=== PATIENT | female | born 1955 | race Hispanic/Latino ===

== ENCOUNTER → 2018-10-31 | Outpatient (CLI) | payer BC ==
[~2018-10-31] MED LIST: CANAGLIFLOZIN PO; CRESTOR10 MG PO; GLIMEPIRIDE4 MG PO; INVOKANA PO; LISINOPRIL5 MG PO; METFORMIN HCL500 MG PO; METFORMIN PO
--- NOTE | 2018-10-31 14:46 | Diagnostic Imaging Report ---
MRI of the right shoulder without contrast. History: Shoulder pain. Fall. Decreased range of motion. Laceration. Comparison: None Technique: Coronal PD FS, sagital PD FS, and axial PD and PD FS. Findings: Rotator cuff: There is rotator cuff tendinosis with mid substance degeneration and predominantly articular sided partial tearing involving the anterior fibers of the supraspinatus and infraspinatus tendons at the humeral insertion site. Additionally, there is subscapularis tendinosis. The teres minor tendon is intact. Osseous acromion complex: Type II acromion with mild lateral downsloping. Moderate degenerative arthrosis at the acromioclavicular joint with undersurface spurring and mild narrowing of the supraspinatus tendon outlet. Mild subacromial/subdeltoid bursitis. Glenohumeral joint: Degeneration and fraying of the labrum. There is an effusion/synovitis in the rotator interval and subcoracoid space. Biceps tendon: Intra-articular biceps tendinosis with fraying at the biceps anchor. Other findings: Negative for muscle denervation or osseous fracture. Impression: Rotator cuff tendinosis with mid substance degeneration and predominantly articular sided partial tearing involving the anterior fibers of the supraspinatus and infraspinatus tendons at the humeral insertion site. Intra-articular biceps tendinosis with fraying at the biceps anchor. Effusion/synovitis in the rotator interval and subcoracoid space. Moderate degenerative arthrosis at the acromioclavicular joint with undersurface spurring and mild narrowing of the supraspinatus tendon outlet. Mild subacromial/subdeltoid bursitis Signed by: Dr. Bartolo Templeton M.D. on 10/31/2018 2:43 PM
== END ==
LOC: MRI 13:44
PROVIDERS: ATTEND Specialist
DX: S46.021A Laceration of muscle(s) and tendon(s) of the rotator cuff of right shoulder, initial encounter (principal)

== ENCOUNTER → 2018-11-11 | Outpatient (RCR) | payer BC | LOC: PT 11-04 07:57 | PROVIDERS: ATTEND Specialist | DX: S46.091D Other injury of muscle(s) and tendon(s) of the rotator cuff of right shoulder, subsequent encounter (principal); M62.81 Muscle weakness (generalized); M25.511 Pain in right shoulder; M25.611 Stiffness of right shoulder, not elsewhere classified ==

== ENCOUNTER 2018-12-07 11:00 | Outpatient (RCR) | payer BC | END 2018-12-11 | LOC: PT 11:00 | PROVIDERS: ATTEND Specialist | DX: S46.091D Other injury of muscle(s) and tendon(s) of the rotator cuff of right shoulder, subsequent encounter (principal); M25.511 Pain in right shoulder; M25.611 Stiffness of right shoulder, not elsewhere classified; M62.81 Muscle weakness (generalized) | CPT/HCPCS: 97139 ==

== ENCOUNTER 2019-01-06 10:43 | Outpatient (RCR) | payer BC | END 2019-01-11 | LOC: PT 10:43 | PROVIDERS: ATTEND Specialist | DX: S46.091D Other injury of muscle(s) and tendon(s) of the rotator cuff of right shoulder, subsequent encounter (principal); M25.511 Pain in right shoulder; M62.81 Muscle weakness (generalized) | CPT/HCPCS: 97139 ==

== ENCOUNTER → 2019-01-17 | Outpatient (CLI) | payer BC ==
[~2019-01-17] MED LIST changes: +IOPAMIDOL 300MG/ML 100 ML INFUS..BTL IV ONE; +IOPAMIDOL 370 MG/ML 200 ML INFUS..BTL INJ ONE; +SODIUM CHLORIDE 0.9% 50ML 50 ML ONE
[2019-01-17 09:26] LABS: BLOOD UREA NITROGEN 15 mg/dL (7-26); BUN/CREATININE RATIO 22 (6-25); CREATININE, SERUM 0.68 mg/dL (0.57-1.11); EST GLOMERULAR FILTRATION RATE > 60 ML/MIN (60-)
--- NOTE | 2019-01-17 10:26 | Diagnostic Imaging Report ---
CT SOFT TISSUE NECK W HISTORY: Localized swelling and mass COMPARISON: None. TECHNIQUE: Axial CT images were obtained through the neck with intravenous, iodine based contrast. Coronal and sagittal reconstructions obtained from the axial data. One or more of the following dose reduction techniques were used: Automated exposure control, adjustment of the mA and/or kV according to patient size, and/or utilization of iterative reconstruction technique. DISCUSSION: A few small bilateral palatine tonsilloliths are present. Otherwise, the visualized upper aerodigestive tract is unremarkable. No radiographically significant cervical adenopathy is seen. The thyroid gland is unremarkable. The submandibular and parotid glands are unremarkable. The major cervical vessels are unremarkable. The spudder, parapharyngeal, posterior cervical, and perivertebral spaces are unremarkable. Ill-defined focal juxtacortical hypodensity along the posterior right temporal lobe is associated with mild dilatation of the right lateral ventricle atrium. Both ocular globes are slightly elongated in AP dimension. Otherwise, the visualized intracranial compartment and orbits are grossly unremarkable. The paranasal sinuses are clear. There are mild degenerative changes throughout the spine. The upper lungs are unremarkable. Small area of focal skin thickening in the left upper paramedian back is nonspecific. IMPRESSION: 1. A few small bilateral palatine tonsilloliths are present. Otherwise, the visualized upper aerodigestive tract is unremarkable. 2. No radiographically significant cervical adenopathy. 3. Nonspecific small area of focal skin thickening in the left upper paramedian back; this can be correlated with physical examination. Otherwise, no discrete neck mass is seen. 4. Ill-defined focal hypodensity in the posterior right temporal lobe could be due to encephalomalacia. Correlation with head CT is recommended. Signed by: Dr. Edvin Painting M.D. on 01/17/2019 10:22 AM
--- NOTE | 2019-01-17 11:10 | Diagnostic Imaging Report ---
EXAM: CT Chest WITH intravenous contrast 01/17/2019 9:01 AM INDICATION: Neck mass, swelling COMPARISON: Concurrently performed neck soft tissue CT of the same day. TECHNIQUE: Chest was scanned utilizing a multidetector helical scanner from the lung apex through the level of the adrenal glands after administration of IV contrast. Coronal and sagittal reformations were obtained. Routine protocol was performed. IV CONTRAST: 100mL Isovue 370 RADIATION DOSE: Total DLP: 633.9 mGy*cm. Dose modulation, iterative reconstruction, and/or weight based adjustment of the mA/kV was utilized to reduce the radiation dose to as low as reasonably achievable. COMPLICATIONS: None FINDINGS: LINES/ TUBES: None. NECK: For findings related to the soft tissues of the neck and visible skull base, please refer to the concurrently reported dedicated neck CT. LUNGS AND AIRWAYS: The central airways are patent. No focal consolidation or pulmonary edema. Bibasilar dependent subsegmental atelectasis. 7 mm right middle lobe pulmonary nodule (series 500 image 72). 6 mm right lower lobe pulmonary nodule (series 500 image 76). PLEURA: No pleural effusion. No pneumothorax. HEART AND MEDIASTINUM: The thyroid gland appears unremarkable. No supraclavicular, mediastinal, hilar lymphadenopathy. The heart is not enlarged. No pericardial effusion. Mild scattered atherosclerotic calcifications of the thoracic aorta. UPPER ABDOMEN: Diffuse hypoattenuation of hepatic parenchyma consistent with hepatic steatosis. No focal lesions in the partially visualized liver. The partially visualized gallbladder, spleen, pancreas appear unremarkable. 11 mm left adrenal nodule is indeterminate but most likely represents adenoma. BONES: No acute osseous injury. No suspicious lytic or blastic lesions. Degenerative changes of the visualized spine. SOFT TISSUES: Unremarkable. IMPRESSION: No soft tissue mass identified. 7 mm right middle lobe and 6 mm right lower lobe pulmonary nodules. If the patient is low risk, recommend chest CT in 6-12 months and optional chest CT at 18-24 months. If the patient is high risk, recommend CT in 6-12 months and subsequent follow-up CT at 18-24 months per Fleischner society recommendations 2017. Hepatic steatosis. Signed by: Harley Zelaya MD on 01/17/2019 11:07 AM
== END ==
LOC: CT 08:48
PROVIDERS: ATTEND Otolaryngology Otolaryngology/Facial Plastic Surgery
DX: R22.0 Localized swelling, mass and lump, head (principal)
CPT/HCPCS: 36415; 70491; 71260; 82565; 84520; Q9967

== ENCOUNTER → 2019-05-08 | Outpatient (CLI) | payer BC ==
[~2019-05-08] MED LIST changes: -IOPAMIDOL 300MG/ML 100 ML INFUS..BTL IV ONE; -IOPAMIDOL 370 MG/ML 200 ML INFUS..BTL INJ ONE; -SODIUM CHLORIDE 0.9% 50ML 50 ML ONE
--- NOTE | 2019-05-08 11:23 | Diagnostic Imaging Report ---
EXAM: Right upper quadrant abdominal ultrasound INDICATION: Right upper quadrant pain COMPARISON: None. TECHNIQUE: Transverse and longitudinal images of the right upper quadrant abdomen were obtained FINDINGS: Liver: Size: 14.7 cm in the right midclavicular line, normal Appearance: Mildly increased echogenicity, smooth contour Mass: No focal masses Gallbladder: No gallbladder distension, pericholecystic fluid, wall thickening, stone, or reported sonographic Moody's sign. Gallbladder wall measures 1 mm. Bile Ducts: Intrahepatic Ducts: No dilatation Extrahepatic Ducts: Common bile duct measures 3 mm, no dilatation Pancreas: Visualized portions of the pancreatic head, neck and proximal body are normal. Kidney: The right kidney measures 10.6 cm without evidence of hydronephrosis or stone. Vessels: Aorta: Visualized portions are normal Inferior Vena Cava: Visualized portions are normal Main Portal Vein: 0.8 cm, normal size with hepatopetal flow. Free Fluid: No ascites or pleural effusion IMPRESSION: No cholelithiasis or sonographic evidence of cholecystitis. Mild hepatic steatosis. Signed by: Harley Zelaya MD on 05/08/2019 11:20 AM
== END ==
LOC: US 09:53
PROVIDERS: ATTEND Surgery
DX: R10.11 Right upper quadrant pain (principal)
CPT/HCPCS: 76705

== ENCOUNTER → 2019-05-16 | Day surgery (SDC) | payer BC ==
[~2019-05-16] MED LIST changes: +FENTANYL CITRATE/PF 100MCG/2 ML INJ ONE; +MIDAZOLAM HCL 2 MG/2 ML VIAL ONE; +PROPOFOL IV EMULSION 10 MG/ML 20 ML VIAL ONE; +SIMETHICONE 40 MG/0.6 ML BTL ONE
--- OUTSIDE RECORDS SUMMARY | 2019-05-16 07:56 | XMS REPORT ---
Author Author [facility] Address Unknown Phone Unavailable Care Team Providers Care Clinical Statistics Manager Name Role Phone Vero RICE Unavailable Unavailable Joe MOISE Unavailable Unavailable VERENICE TORRE Unavailable Unavailable Problems This patient has no known problems. Allergies, Adverse Reactions, Alerts This patient has no known allergies or adverse reactions. Medications This patient has no known medications. Results Test Description Test Time Test Comments Text Results Atomic Results Result Comments GALLBLADDER 2019-05-08 11:18:00 [place] [id number] Patient Name: JESUS MANUEL RICE MR #: [id number] : 1955 Age/Sex: 63/F Req #: [id number] Adm Physician: Ordered by: BLAIR RICE MD Report #: [id number] Location: Room/Bed: Procedure: [id number] US/US GALLBLADDER Exam Date: 05/08/19 Exam Time: 1036 REPORT STATUS: Signed EXAM: Right upper quadrant abdominal ultrasound I NDICATION: Right upper quadrant pain COMPARISON: None. TECHNIQUE: Transverse and longitudinal images of the right upper quadrant abdomen were obtained FINDINGS: Liver: Size: 14.7 cm in the right midclavicular line, normal Appearance: Mildly increased echogenicity, smooth contour Mass: No focal masses Gallbladder: No gallbladder distension, pericholecystic fluid, wall thickening, stone, or reported sonographic Moody's sign. Gallbladder wall measures 1 mm. Bile Ducts: Intrahepatic Ducts: No dilatation Extrahepatic Ducts: Common bile duct measures 3 mm, no dilatation Pancreas: Visualized portions of the pancreatic head, neck and proximal body are normal. Kidney: The right kidney measures 10.6 cm without evidence of hydronephrosis or stone. Vessels: Aorta: Visualized portions are normal Inferior Vena Cava: Visualized portions are normal Main Portal Vein: 0.8 cm, normal size with hepatopetal flow. Free Fluid: No ascites or pleural effusion IMPRESSION: No cholelithiasis or sonographic evidence of cholecystitis. Mild hepatic steatosis. Signed by: Lincoln Rivera MD on 05/08/2019 11:20 AM Dictated By: LINCOLN RIVERA MD 19 Transcribed By: ELIZABETH on 05/08/191119 COPY TO: BLAIR RICE MD CT CHEST W 2019-01-17 10:37:00 [place] [address] Patient Name: JESUS MANUEL RICE MR #: [id number] : 1955 Age/Sex: 63/F Req #: [id number] Adm Physician: Ordered by: GOLD MOISE MD Report #: [id number] Location: CT Room/Bed: Procedure: [id number] CT/CT CHEST W Exam Date: 01/17/19 Exam Time: 1023 REPORT STATUS: Signed EXAM: CT Chest WITH intravenous contrast 01/17/2019 9:01 AM INDICATION: Neck mass, swelling COMPARISON: Concurrently performed neck soft tissue CT of the same day. TECHNIQUE: Chest was scanned utilizing a multidetector helical scanner from the lung apex through the level of the adrenal glands after administration of IV contrast. Coronal and sagittal reformations were obtained. Routine protocol was performed. IV CONTRAST: 100mL Isovue 370 RADIATION DOSE: Total DLP: 633.9 mGy*cm. Dose modulation, iterative reconstruction, and/or weight based adjustment of the mA/kV was utilized to reduce the radiation dose to as low as reasonably achievable. COMPLICATIONS: None FINDINGS: LINES/ TUBES: None. NECK: For findings related to the soft tissues of the neck and visible skull base, please refer to the concurrently reported dedicated neck CT. LUNGS AND AIRWAYS: The central airways are patent. No focal consolidation or pulmonary edema. Bibasilar dependent subsegmental atelectasis. 7 mm right middle lobe pulmonary nodule (series 500 image 72). 6 mm right lower lobe pulmonary nodule (series 500 image 76). PLEURA: No pleural effusion. No pneumothorax. HEART AND MEDIASTINUM: The thyroid gland appears unremarkable. No supraclavicular, mediastinal, hilar lymphadenopathy. The heart is not enlarged. No pericardial effusion. Mild scattered atherosclerotic calcifications of the thoracic aorta. UPPER ABDOMEN: Diffuse hypoattenuation of hepatic parenchyma consistent with hepatic steatosis. No focal lesions in the partially visualized liver. The partially visualized gallbladder, spleen, panc reas appear unremarkable. 11 mm left adrenal nodule is indeterminate but most likely represents adenoma. BONES: No acute osseous injury. No suspicious lytic or blastic lesions. Degenerative changes of the visualized spine. SOFT TISSUES: Unremarkable. IMPRESSION: No soft tissue mass identified. 7 mm right middle lobe and 6 mm right lower lobe pulmonary nodules. If the patient is low risk, recommend chest CT in 6-12 months and optional chest CT at 18-24 months. If the patient is high risk, recommend CT in 6-12 months and subsequent follow-up CT at 18-24 months per Fleischner society recommendations 2017. Hepatic steatosis. Signed by: Lincoln Rivera MD on 01/17/2019 11:07 AM Dictated By: LINCOLN RIVERA MD 110 Transcribed By: ELIZABETH on 01/17/191106 COPY TO: GOLD MOISE MD CT SOFT TISSUE NECK W 2019-01-17 10:16:00 [place] [id number] Patient Name: JESUS MANUEL RICE MR #: [id number] : 1955 Age/Sex: 63/F Req #: [id number] [facility] Physician: Ordered by: GOLD MOISE MD Report #: [id number] Location: CT Room/Bed: Procedure: [id number] CT/CT SOFT TISSUE NECK W Exam Date: 01/17/19 Exam Time: 1023 REPORT STATUS: Signed CT SOFT TISSUE NECK W HISTORY: Localized swelling and mass COMPARISON: None. TECHNIQUE: Axial CT images were obtained through the neck with intravenous, iodine based contrast. Coronal and sagittal reconstructions obtained from the axial data. One or more of the following dose reduction techniques were used: Automated exposure control, adjustment of the mA and/or kV according to patient size, and/or utilization of iterative reconstruction technique. DISCUSSION: A few small bilateral palatine tonsilloliths are present. Otherwise, the visualized upper aerodigestive tract is unremarkable. No radiographically significant cervical adenopathy is seen. The thyroid gland is unremarkable. The submandibular and parotid glands are unremarkable. The major cervical vessels are unremarkable. The research subject, parapharyngeal, posterior cervical, and perivertebral spaces are unremarkable. Ill-defined focal juxtacortical hypodensity along the posterior right temporal lobe is associated with mild dilatation of the right lateral ventricle atrium. Both ocular globes are slightly elongated in AP dimension. Otherwise, the visualized intracranial compartment and orbits are grossly unremarkable. The paranasal sinuses are clear. There are mild degenerative changes throughout the spine. The upper lungs are unremarkable. Small area of focal skin thickening in the left upper paramedian back is nonspecific. IMPRESSION: 1. A few small bilateral palatine tonsilloliths are present. Otherwise, the visualized upper aerodigestive tract is unremarkable. 2. No radiographically significant cervical adenopathy. 3. Nonspecific small area of focal skin thickening in the left upper paramedian back; this can be correlated with physical examination. Otherwise, no discrete neck mass is seen. 4. Ill-defined focal hypodensity in the posterior right temporal lobe could be due to encephalomalacia. Correlation with head CT is recommended. Signed by: Dr. Edvin Painting M.D. on 01/17/2019 10:22 AM Dictated By: EDVIN PAINTING MD 1022 Transcribed By: ELIZABETH on 01/17/19 1022 COPY TO: GOLD MOISE MD MRI SHOULDER RIGHT WO 2018-10-31 14:39:00 [place] [id number] Patient Name: JESUS MANUEL RICE MR #: [id number] : 1955 Age/Sex: 62/F Req #: [id number] Adm Physician: Ordered by: VERENICE TORRE MD Report #: [id number] Location: MRI Room/Bed: Procedure: [id number] MRI/MRI SHOULDER RIGHT WO Exam Date: Exam Time: REPORT STATUS: Signed MRI of the right shoulder without contrast. History: Shoulder pain. Fall. Decreased range of motion. Laceration. Comparison: None Technique: Coronal PD FS, sagital PD FS, and axial PD and PD FS. Findings: Rotator cuff: There is rotator cuff tendinosis with mid substance degeneration and predominantly articular sided partial tearing involving the anterior fibers of the supraspinatus and infraspinatus tendons at the humeral insertion site. Additionally, there is subscapularis tendinosis. The teres minor tendon is intact. Osseous acromion complex: Type II acromion with mild lateral downsloping. Moderate degenerative arthrosis at the acromioclavicular joint with undersurface spurring and mild narrowing of the supraspinatus tendon outlet. Mild subacromial/subdeltoid bursitis. Glenohumeral joint: Degeneration and fraying of the labrum. There is an effusion/synovitis in the rotator interval and subcoracoid space. Biceps tendon: Intra-articular biceps tendinosis with fraying at the biceps anchor. Other findings: Negative for muscle denervation or osseous fracture. Impression: Rotator cuff tendinosis with mid substance degeneration and predominantly articular sided partial tearing involving the anterior fibers of the supraspinatus and infraspinatus tendons at the humeral insertion site. Intra-articular biceps tendinosis with fraying at the biceps anchor. Effusion/synovitis in the rotator interval and subcoracoid space. Moderate degenerative arthrosis at the acromioclavicular joint with undersurface spurring and mild narrowing of the supraspinatus tendon outlet. Mild subacromial/subdeltoid bursitis Signed by: Dr. Bartolo Templeton M.D. on 10/31/2018 2:43 PM Dictated By: BARTOLO TEMPLETON MD, MD 1449 Tr anscribed By: ELIZABETH on 10/31/18 144 COPY TO: VERENICE TORRE MD
[2019-05-16 10:15] VITALS: BP 120/65
== END | disposition home or self-care (01) ==
LOC: OR 07:53
PROVIDERS: ATTEND Surgery
DX: K29.50 Unspecified chronic gastritis without bleeding (principal); B96.81 Helicobacter pylori [H. pylori] as the cause of diseases classified elsewhere; E11.9 Type 2 diabetes mellitus without complications; Z88.6 Allergy status to analgesic agent; Z79.84 Long term (current) use of oral hypoglycemic drugs; Z80.0 Family history of malignant neoplasm of digestive organs
CPT/HCPCS: 36415; 43239; 45378; 82948; 88305; 88312; 93005; J2250; J2704; J3010

== ENCOUNTER → 2020-06-12 | Outpatient (CLI) | payer OTHER ==
[~2020-06-12] MED LIST changes: +COVID-19 VACC, MRNA(MODERNA)/PF 100 MCG/0.5 ML VIAL IM ONE; -FENTANYL CITRATE/PF 100MCG/2 ML INJ ONE; -MIDAZOLAM HCL 2 MG/2 ML VIAL ONE; -PROPOFOL IV EMULSION 10 MG/ML 20 ML VIAL ONE; -SIMETHICONE 40 MG/0.6 ML BTL ONE
== END ==
LOC: VACCPMC 19:00
DX: Z23 Encounter for immunization (principal); Z20.828 Contact with and (suspected) exposure to other viral communicable diseases

== ENCOUNTER → 2020-07-15 | Outpatient (CLI) | payer OTHER | LOC: VACCPMC 09:45 | DX: Z23 Encounter for immunization (principal); Z20.822 Contact with and (suspected) exposure to COVID-19 | CPT/HCPCS: 0012A; 91301 ==

== ENCOUNTER → 2022-01-01 | Outpatient (CLI) | payer MEDICARE, OTHER ==
[~2022-01-01] MED LIST changes: -COVID-19 VACC, MRNA(MODERNA)/PF 100 MCG/0.5 ML VIAL IM ONE
== END ==
LOC: LAB 13:09
PROVIDERS: ATTEND Surgery
DX: U07.1 COVID-19 (principal)
CPT/HCPCS: 0223U; 36415

== ENCOUNTER → 2022-11-16 | Outpatient (CLI) | payer MEDICARE, OTHER ==
[2022-11-16 12:07] LABS: BASOPHILS # (AUTO) 0.1 (0.0-0.1); BASOPHILS % 0.9 % (0.0-1.0); EOSINOPHILS # (AUTO) 0.4 (0.0-0.4); HEMATOCRIT 44.7 % (34.2-44.1); HEMOGLOBIN 14.6 g/dL (12.0-16.0); LYMPHOCYTES # (AUTO) 2.7 (1.0-3.2); LYMPHOCYTES % 31.5 % (18.0-39.1); MEAN CORPUSCULAR HEMOGLOBIN 30.7 pg (28-32); MEAN CORPUSCULAR HGB CONC 32.7 g/dL (31-35); MEAN CORPUSCULAR VOLUME 94.1 fL (81-99); MONOCYTES # (AUTO) 0.7 (0.2-0.8); MONOCYTES % 8.1 % (4.4-11.3); NEUTROPHILS # (AUTO) 4.6 (2.1-6.9); NEUTROPHILS % 53.9 % (38.7-80.0); PLATELET COUNT 412 x10e3/uL (140-360); RED BLOOD COUNT 4.75 x10e6/uL (3.6-5.1); RED CELL DISTRIBUTION WIDTH 12.6 % (11.7-14.4)
[2022-11-16 12:31] LABS: ALBUMIN 4.4 g/dL (3.5-5.0); ALBUMIN/GLOBULIN RATIO 1.5 (0.8-2.0); CALCIUM 9.9 mg/dL (8.4-10.2); CHOL/HDL RATIO 4.6 (3.0-3.6); CREATININE, SERUM 0.66 mg/dL (0.57-1.11)
== END ==
LOC: LAB 11:20
PROVIDERS: ATTEND Internal Medicine
DX: E11.9 Type 2 diabetes mellitus without complications (principal); I10 Essential (primary) hypertension; E78.2 Mixed hyperlipidemia
CPT/HCPCS: 36415; 80053; 80061; 82044; 82570; 83036; 85025

== ENCOUNTER → 2024-02-03 | Day surgery (SDC) | payer MEDICARE, OTHER ==
[2024-01-27 10:19] LABS: BASOPHILS # (AUTO) 0.1 (0.0-0.1); BASOPHILS % 0.9 % (0.0-1.0); EOSINOPHILS # (AUTO) 0.2 (0.0-0.4); HEMOGLOBIN 13.8 g/dL (12.0-16.0); LYMPHOCYTES # (AUTO) 3.5 (1.0-3.2); LYMPHOCYTES % 28.8 % (18.0-39.1); MEAN CORPUSCULAR HEMOGLOBIN 30.9 pg (28-32); MEAN CORPUSCULAR HGB CONC 32.9 g/dL (31-35); MEAN CORPUSCULAR VOLUME 94.2 fL (81-99); MONOCYTES # (AUTO) 0.9 (0.2-0.8); MONOCYTES % 7.1 % (4.4-11.3); NEUTROPHILS # (AUTO) 7.5 (2.1-6.9); NEUTROPHILS % 60.5 % (38.7-80.0); PLATELET COUNT 361 x10e3/uL (140-360); RED BLOOD COUNT 4.46 x10e6/uL (3.6-5.1); RED CELL DISTRIBUTION WIDTH 12.1 % (11.7-14.4)
[2024-01-27 10:38] LABS: ANION GAP 13.9 mmol/L (8-16); CALCIUM 9.6 mg/dL (8.4-10.2); CREATININE, SERUM 0.84 mg/dL (0.57-1.11); POTASSIUM 3.9 mmol/L (3.5-5.1)
[~2024-02-03] MED LIST changes: +ACETAMINOPHEN 1000 MG/100 ML IV ONE; +ACETAMINOPHEN-1 EAC4 PO; +BUPIVACAINE HCL 0.5% INJ 30 ML VIAL INJ ONE; +DEXAMETHASONE SOD PHOS INJ 4 MG/ML SDV ONE; +FENTANYL CITRATE/PF 100MCG/2 ML INJ ONE; +LACTATED RINGER'S 1,000 ML ONE; +LIDOCAINE HCL 2% LOCAL INJ 5 ML SDV VIAL INJ ONE; +METOCLOPRAMIDE HCL 10 MG/2ML VIAL ONE; +MUPIROCIN 2% OINT 22 GM TUBE ONE; +ONDANSETRON HCL INJ 2MG/ML 2ML 2 MG/ML VIAL ONE; +PANTOPRAZOLE SO40 MG PO; +PROPOFOL IV EMULSION 10 MG/ML 20 ML VIAL ONE; +SEVOFLURANE INHAL SOLN 250 ML PEN BTL ONE; +XIGDUO XR 5 MG1 EAC1 PO
[2024-02-03 12:36] VITALS: TEMP 97.3
[2024-02-03] MEDS: ONDANSETRON HCL INJ 2MG/ML 2ML 2 MG/ML VIAL IV ONE (12:55)
[2024-02-03] MEDS: FENTANYL CITRATE/PF 100MCG/2 ML INJ IV ONE (12:57)
[2024-02-03] MEDS: METOCLOPRAMIDE HCL 10 MG/2ML VIAL IV ONE (13:11)
[2024-02-03 13:40] VITALS: BP 148/68; PULSE 60; RESP 16; O2SAT 96
== END | disposition home or self-care (01) ==
LOC: OR 07:52
PROVIDERS: ATTEND Plastic Surgery
DX: M65.331 Trigger finger, right middle finger (principal); M65.321 Trigger finger, right index finger; M65.341 Trigger finger, right ring finger; M65.322 Trigger finger, left index finger; M65.332 Trigger finger, left middle finger; M65.342 Trigger finger, left ring finger; I10 Essential (primary) hypertension; E78.5 Hyperlipidemia, unspecified; E11.9 Type 2 diabetes mellitus without complications; Z88.6 Allergy status to analgesic agent; Z01.810 Encounter for preprocedural cardiovascular examination; Z01.812 Encounter for preprocedural laboratory examination; Z01.818 Encounter for other preprocedural examination; Z79.84 Long term (current) use of oral hypoglycemic drugs; Z79.899 Other long term (current) drug therapy
CPT/HCPCS: 26055 ×5; 36415; 71046; 80048; 85025; 93005; J0131; J0690; J1100; J2001; J2405; J2704; J2765; J3010; J7121